=== PATIENT | female | born 1990 | race Two or more races ===

== ENCOUNTER 2024-01-31 23:25 | Inpatient (IN) | payer BC, SELFPAY ==
[2024-01-31 23:00] VITALS: BP 133/84; PULSE 66; O2SAT 94
[2024-01-31 23:01] VITALS: RESP 16; TEMP 36.7; O2SAT 98
[2024-01-31 23:06] VITALS: BMI 29.2
[2024-01-31 23:25] LABS: ROM Internal Control Test YES-OK TO RESULT pt. (Internal QC); ROM Patient Test POSITIVE (Negative); Record Kit Lot#, ROM+ K1866
[2024-01-31] MEDS: Lactated Ringers 1,000 ML 50 ML IV (23:45)
[2024-02-01] VITALS (82 sets, daily range): BP systolic 89–156; BP diastolic 50–96; PULSE 55–115; RESP 15–20; TEMP 36–37.8; O2SAT 91–100
[2024-02-01] LABS: Absolute Lymphocyte Count 2.24 X10^3/uL (0.83-4.51); Absolute Neutrophil Count 6.1 X10^3/uL (2.0-7.7); Basophil# 0.03 X10^3/uL; Basophil% 0.3 % (0-1); Eosinophil# 0.19 X10^3/uL; Hematocrit 37.4 % (37-47); Hemoglobin 12.6 g/dL (12.0-15.0); Lymphocyte # 2.24 X10^3/ul (0.83-4.51); Lymphocyte % 24.1 % (19-41); Mean Corp Hgb Conc 33.7 g/dL (32-36); Mean Corpuscular Hgb 30.9 pg (27.0-32.0); Mean Corpuscular Volume 91.7 fL (81-99); Mean Platelet Vol. 12.1 fl (6.2-12.0); Monocyte# 0.65 X10^3/uL; NRBC Flagged by Analyzer 0 % (0-5); Neutrophil # 6.14 X10^3/uL (2.7-7.7); Neutrophil % 66.1 % (47-70); Platelet Count 147 K/mm3 (150-450); RBC Distribution Width CV 13.1 % (11.6-14.6); RBC Distribution Width SD 43.7 fl (35.1-43.9); Red Blood Count 4.08 M/mm3 (4.2-5.4); White Blood Count 9.3 K/mm3 (4.4-11.0)
[2024-02-01 00:41] LABS: Bedside Glucose 93 mg/dL (74-106)
[2024-02-01 00:53] LABS: Syphilis Antibodies Non-reactive
[2024-02-01] MEDS: Lactated Ringers 1,000 ML 999 ML IV (00:55)
[2024-02-01] MEDS: fentaNYL-bupivacaine (epidural) 100 ML BAG EPIDURAL ×2 (01:42→05:44)
[2024-02-01] MEDS: 0.9% Saline Lock 10 ML Syringe IV ×2 (02:45→15:31)
[2024-02-01 02:46] LABS: Bedside Glucose 126 mg/dL (74-106)
[2024-02-01 02:46] LABS: Bedside Glucose 133 mg/dL (74-106)
[2024-02-01] MEDS: LACTATED RINGERS 500 ML 999 ML IV (03:35)
[2024-02-01 03:46] LABS: Bedside Glucose 121 mg/dL (74-106)
[2024-02-01 05:04] LABS: Bedside Glucose 103 mg/dL (74-106)
--- NOTE | 2024-02-01 05:32 | NURSING ---
intermittent straight cath during labor.
[2024-02-01 07:07] LABS: Bedside Glucose 93 mg/dL (74-106)
[2024-02-01] MEDS: Lactated Ringers 1,000 ML 200 ML IV ×2 (07:28→08:57)
[2024-02-01 08:37] LABS: Bedside Glucose 90 mg/dL (74-106)
[2024-02-01] MEDS: Ondansetron 4 MG/2 ML Vial IV (08:57)
[2024-02-01] MEDS: Oxytocin 15 Units/NS 250ml 15 UNITS/250 ML IV.SOLN 2 UNITS IV (09:19)
[2024-02-01 09:40] LABS: Bedside Glucose 89 mg/dL (74-106)
[2024-02-01 10:12] LABS: Bedside Glucose 82 mg/dL (74-106)
--- NOTE | 2024-02-01 10:53 | PCM.HP.OB ---
HPI - General General Date of Admission: 01/31/24 HPI Narrative SHERRY THOMPSON, is a 33 F who presents at 39 weeks with rupture of membranes and irregular contractions. Maternal Data Information KRISHNA Calculator Estimated Delivery Date Method Current WG Current Estimate 02/08/24 Manual 39w 0d [facility] Medical History (Updated 02/01/24 @ 10:57 by Bri Brady CNM) Gestational diabetes Home Medications ?Medication ?Instructions ?Recorded ?Last Taken ?Type vit no.95-ferrous 1 tab PO DAILY see provid 01/31/24 01/31/24 20:05 History fumarate 28 mg-folic acid 800 mcg tablet () Allergy/AdvReac Type Severity Reaction Status Date / Time No Known Allergies Allergy Verified 01/31/24 23:04 Social History Smoking Status: Never smoker History Elective abortions Hx Para 0 Spontaneous abortions Hx # Term Pregnancies Ectopic pregnancies Hx # Pregnancies Multiple births # of living children ROS Constitutional Constitutional: Reports systems reviewed and no addt'l complaints, except as documented; Denies headache(s) Eyes Eyes: Denies acute decrease in peripheral vision, blurry vision or change in vision ENT HEENT: Reports systems reviewed and no addt'l complaints, except as documented Cardiovascular Cardiovascular: Denies chest pain or dizziness Respiratory/Chest Respiratory/Chest: Denies cough, dyspnea, dyspnea on exertion, shortness of breath at rest or shortness of breath with exertion Gastrointestinal Gastrointestinal: Denies abdominal pain, diarrhea, nausea or vomiting Genitourinary Genitourinary: Reports movement Details: present; Denies abdominal discomfort Musculoskeletal Musculoskeletal: Denies limited range of motion Integumentary Integumentary: Reports systems reviewed and no addt'l complaints, except as documented Neurologic Neurologic: Reports systems reviewed and no addt'l complaints, except as documented Psychiatric Psychiatric: Reports systems reviewed and no addt'l complaints, except as documented Endocrine Endocrinology: Reports systems reviewed and no addt'l complaints, except as documented Hematologic/Lymphatic Hematologic/Lymphatic: Reports systems reviewed and no addt'l complaints, except as documented Allergic/Immunologic Allergic/Immunologic: Reports systems reviewed and no addt'l complaints, except as documented Vital Signs Vital Signs Vital Signs: 01/31/24 23:00 01/31/24 23:00 01/31/24 23:00 Temperature Temperature Source Pulse Rate 66 Respiratory Rate Blood Pressure 133/84 H BP Systolic 133 BP Diastolic 84 Pulse Ox 94 01/31/24 23:01 01/31/24 23:01 01/31/24 23:01 Temperature Temperature Source Temporal Pulse Rate Respiratory Rate 16 Blood Pressure BP Systolic BP Diastolic Pulse Ox 98 01/31/24 23:01 02/01/24 00:15 02/01/24 00:15 Temperature 98.0 F Temperature Source Temporal Pulse Rate Respiratory Rate Blood Pressure 105/71 BP Systolic 105 BP Diastolic 71 Pulse Ox 02/01/24 00:15 02/01/24 00:15 02/01/24 00:15 Temperature Temperature Source Pulse Rate 65 Respiratory Rate 16 Blood Pressure BP Systolic BP Diastolic Pulse Ox 99 02/01/24 00:15 02/01/24 01:17 02/01/24 01:17 Temperature 97.4 F L Temperature Source Temporal Pulse Rate 59 L Respiratory Rate Blood Pressure BP Systolic BP Diastolic Pulse Ox 02/01/24 01:17 02/01/24 01:17 02/01/24 01:17 Temperature 97.5 F L Temperature Source Pulse Rate Respiratory Rate 16 Blood Pressure BP Systolic BP Diastolic Pulse Ox 94 02/01/24 01:18 02/01/24 01:18 02/01/24 01:18 Temperature Temperature Source Pulse Rate 59 L Respiratory Rate Blood Pressure 156/96 H BP Systolic 156 BP Diastolic 96 Pulse Ox 93 02/01/24 01:18 02/01/24 01:18 02/01/24 01:22 Temperature Temperature Source Pulse Rate 57 L 73 Respiratory Rate Blood Pressure BP Systolic BP Diastolic Pulse Ox 99 02/01/24 01:22 02/01/24 01:27 02/01/24 01:27 Temperature Temperature Source Pulse Rate 70 Respiratory Rate Blood Pressure 134/78 H BP Systolic 134 BP Diastolic 78 Pulse Ox 98 02/01/24 01:27 02/01/24 01:27 02/01/24 01:32 Temperature Temperature Source Pulse Rate Respiratory Rate 18 Blood Pressure 132/80 H BP Systolic 132 BP Diastolic 80 Pulse Ox 98 02/01/24 01:32 02/01/24 01:32 02/01/24 01:32 Temperature Temperature Source Pulse Rate 75 69 Respiratory Rate Blood Pressure BP Systolic BP Diastolic Pulse Ox 98 02/01/24 01:32 02/01/24 01:37 02/01/24 01:37 Temperature Temperature Source Pulse Rate 67 Respiratory Rate 20 H Blood Pressure 138/93 H BP Systolic 138 BP Diastolic 93 Pulse Ox 02/01/24 01:37 02/01/24 01:37 02/01/24 01:42 Temperature Temperature Source Pulse Rate 63 Respiratory Rate 20 H Blood Pressure BP Systolic BP Diastolic Pulse Ox 98 02/01/24 01:42 02/01/24 01:43 02/01/24 01:47 Temperature Temperature Source Pulse Rate Respiratory Rate 20 H Blood Pressure 127/79 H BP Systolic 127 BP Diastolic 79 Pulse Ox 96 02/01/24 01:47 02/01/24 01:47 02/01/24 01:48 Temperature Temperature Source Pulse Rate 67 Respiratory Rate 20 H Blood Pressure BP Systolic BP Diastolic Pulse Ox 98 02/01/24 01:52 02/01/24 01:52 02/01/24 01:52 Temperature Temperature Source Pulse Rate 68 Respiratory Rate Blood Pressure 124/64 H BP Systolic 124 BP Diastolic 64 Pulse Ox 98 02/01/24 01:57 02/01/24 01:57 02/01/24 01:57 Temperature Temperature Source Pulse Rate 69 72 Respiratory Rate Blood Pressure 122/74 H BP Systolic 122 BP Diastolic 74 Pulse Ox 02/01/24 01:57 02/01/24 01:57 02/01/24 02:02 Temperature Temperature Source Pulse Rate Respiratory Rate 20 H Blood Pressure 135/77 H BP Systolic 135 BP Diastolic 77 Pulse Ox 99 02/01/24 02:02 02/01/24 02:02 02/01/24 02:02 Temperature Temperature Source Pulse Rate 75 62 Respiratory Rate Blood Pressure BP Systolic BP Diastolic Pulse Ox 99 02/01/24 02:02 02/01/24 02:07 02/01/24 02:07 Temperature Temperature Source Pulse Rate 66 Respiratory Rate 20 H Blood Pressure 126/61 H BP Systolic 126 BP Diastolic 61 Pulse Ox 02/01/24 02:07 02/01/24 02:07 02/01/24 02:12 Temperature Temperature Source Pulse Rate 58 L Respiratory Rate 20 H Blood Pressure BP Systolic BP Diastolic Pulse Ox 98 02/01/24 02:12 02/01/24 02:12 02/01/24 02:13 Temperature Temperature Source Pulse Rate Respiratory Rate 20 H Blood Pressure 121/60 H BP Systolic 121 BP Diastolic 60 Pulse Ox 98 02/01/24 02:13 02/01/24 02:16 02/01/24 02:16 Temperature Temperature Source Pulse Rate 55 L 71 Respiratory Rate Blood Pressure BP Systolic BP Diastolic Pulse Ox 92 02/01/24 02:17 02/01/24 02:17 02/01/24 02:18 Temperature Temperature Source Pulse Rate 59 L Respiratory Rate 20 H Blood Pressure BP Systolic BP Diastolic Pulse Ox 99 02/01/24 02:47 02/01/24 02:47 02/01/24 02:47 Temperature Temperature Source Pulse Rate 65 Respiratory Rate 20 H Blood Pressure 134/81 H BP Systolic 134 BP Diastolic 81 Pulse Ox 02/01/24 03:00 02/01/24 03:00 02/01/24 03:00 Temperature 97.5 F L Temperature Source Temporal Pulse Rate Respiratory Rate 20 H Blood Pressure BP Systolic BP Diastolic Pulse Ox 02/01/24 03:00 02/01/24 03:00 02/01/24 03:00 Temperature Temperature Source Pulse Rate 72 Respiratory Rate 20 H Blood Pressure 119/71 BP Systolic 119 BP Diastolic 71 Pulse Ox 02/01/24 03:01 02/01/24 03:01 02/01/24 03:04 Temperature Temperature Source Pulse Rate 74 Respiratory Rate Blood Pressure 115/74 BP Systolic 115 BP Diastolic 74 Pulse Ox 96 02/01/24 03:04 02/01/24 03:04 02/01/24 03:04 Temperature Temperature Source Pulse Rate 78 Respiratory Rate 20 H Blood Pressure BP Systolic BP Diastolic Pulse Ox 91 02/01/24 03:05 02/01/24 03:06 02/01/24 03:06 Temperature Temperature Source Pulse Rate 72 Respiratory Rate Blood Pressure BP Systolic BP Diastolic Pulse Ox 96 96 02/01/24 03:09 02/01/24 03:09 02/01/24 03:09 Temperature Temperature Source Pulse Rate 68 Respiratory Rate 20 H Blood Pressure BP Systolic 121 BP Diastolic Pulse Ox 02/01/24 03:09 02/01/24 03:10 02/01/24 03:10 Temperature Temperature Source Pulse Rate 73 Respiratory Rate Blood Pressure BP Systolic BP Diastolic 77 Pulse Ox 94 02/01/24 03:11 02/01/24 03:11 02/01/24 03:14 Temperature Temperature Source Pulse Rate 73 Respiratory Rate Blood Pressure 124/78 H BP Systolic 124 BP Diastolic 78 Pulse Ox 94 02/01/24 03:14 02/01/24 03:15 02/01/24 03:16 Temperature Temperature Source Pulse Rate 62 73 Respiratory Rate 20 H Blood Pressure BP Systolic BP Diastolic Pulse Ox 02/01/24 03:16 02/01/24 03:21 02/01/24 03:21 Temperature Temperature Source Pulse Rate 76 Respiratory Rate Blood Pressure 107/55 L BP Systolic 107 BP Diastolic 55 Pulse Ox 95 02/01/24 03:21 02/01/24 03:21 02/01/24 03:24 Temperature Temperature Source Pulse Rate Respiratory Rate 20 H Blood Pressure 107/59 L BP Systolic 107 BP Diastolic 59 Pulse Ox 97 02/01/24 03:24 02/01/24 03:24 02/01/24 03:26 Temperature Temperature Source Pulse Rate 86 99 Respiratory Rate 18 Blood Pressure BP Systolic BP Diastolic Pulse Ox 02/01/24 03:26 02/01/24 03:29 02/01/24 03:29 Temperature Temperature Source Pulse Rate Respiratory Rate 18 Blood Pressure BP Systolic BP Diastolic Pulse Ox 97 97 02/01/24 03:30 02/01/24 03:30 02/01/24 03:31 Temperature Temperature Source Pulse Rate 86 85 Respiratory Rate Blood Pressure 94/50 L BP Systolic 94 BP Diastolic 50 Pulse Ox 02/01/24 03:31 02/01/24 03:34 02/01/24 03:34 Temperature Temperature Source Pulse Rate 81 Respiratory Rate Blood Pressure 93/51 L BP Systolic 93 BP Diastolic 51 Pulse Ox 96 02/01/24 03:34 02/01/24 03:36 02/01/24 03:36 Temperature Temperature Source Pulse Rate 79 Respiratory Rate 18 Blood Pressure BP Systolic BP Diastolic Pulse Ox 97 02/01/24 03:39 02/01/24 03:39 02/01/24 03:39 Temperature Temperature Source Pulse Rate 82 Respiratory Rate 18 Blood Pressure 92/55 L BP Systolic 92 BP Diastolic 55 Pulse Ox 02/01/24 03:39 02/01/24 03:41 02/01/24 03:41 Temperature Temperature Source Pulse Rate 80 Respiratory Rate Blood Pressure BP Systolic BP Diastolic Pulse Ox 98 97 02/01/24 03:45 02/01/24 03:45 02/01/24 03:45 Temperature Temperature Source Pulse Rate 68 Respiratory Rate 18 Blood Pressure 90/55 L BP Systolic 90 BP Diastolic 55 Pulse Ox 02/01/24 03:46 02/01/24 03:46 02/01/24 03:51 Temperature Temperature Source Pulse Rate 70 82 Respiratory Rate Blood Pressure BP Systolic BP Diastolic Pulse Ox 97 02/01/24 03:51 02/01/24 03:56 02/01/24 03:56 Temperature Temperature Source Pulse Rate 89 Respiratory Rate Blood Pressure BP Systolic BP Diastolic Pulse Ox 98 100 02/01/24 04:01 02/01/24 04:01 02/01/24 04:06 Temperature Temperature Source Pulse Rate 83 73 Respiratory Rate Blood Pressure BP Systolic BP Diastolic Pulse Ox 100 02/01/24 04:06 02/01/24 04:11 02/01/24 04:11 Temperature Temperature Source Pulse Rate 68 Respiratory Rate Blood Pressure BP Systolic BP Diastolic Pulse Ox 99 97 02/01/24 04:16 02/01/24 04:16 02/01/24 04:16 Temperature Temperature Source Pulse Rate 70 Respiratory Rate Blood Pressure 89/53 L BP Systolic 89 BP Diastolic 53 Pulse Ox 97 02/01/24 04:21 02/01/24 04:21 02/01/24 04:26 Temperature Temperature Source Pulse Rate 67 64 Respiratory Rate Blood Pressure BP Systolic BP Diastolic Pulse Ox 97 02/01/24 04:26 02/01/24 04:31 02/01/24 04:31 Temperature Temperature Source Pulse Rate 69 Respiratory Rate Blood Pressure BP Systolic BP Diastolic Pulse Ox 97 97 02/01/24 04:36 02/01/24 04:36 02/01/24 04:38 Temperature Temperature Source Pulse Rate 86 Respiratory Rate Blood Pressure 123/68 H BP Systolic 123 BP Diastolic 68 Pulse Ox 98 02/01/24 04:38 02/01/24 04:39 02/01/24 04:39 Temperature Temperature Source Temporal Pulse Rate 77 Respiratory Rate Blood Pressure 108/60 BP Systolic 108 BP Diastolic 60 Pulse Ox 02/01/24 04:39 02/01/24 04:39 02/01/24 04:39 Temperature 97.4 F L Temperature Source Pulse Rate 95 Respiratory Rate 16 Blood Pressure BP Systolic BP Diastolic Pulse Ox 02/01/24 04:40 02/01/24 04:40 02/01/24 05:29 Temperature Temperature Source Temporal Pulse Rate 88 Respiratory Rate Blood Pressure BP Systolic BP Diastolic Pulse Ox 93 02/01/24 05:29 02/01/24 05:29 02/01/24 05:30 Temperature 97.2 F L Temperature Source Pulse Rate Respiratory Rate 16 Blood Pressure 112/59 L BP Systolic 112 BP Diastolic 59 Pulse Ox 02/01/24 05:30 02/01/24 05:31 02/01/24 05:31 Temperature Temperature Source Pulse Rate 73 72 Respiratory Rate Blood Pressure BP Systolic BP Diastolic Pulse Ox 100 02/01/24 06:41 02/01/24 06:41 02/01/24 06:41 Temperature Temperature Source Temporal Pulse Rate 69 Respiratory Rate Blood Pressure 113/62 BP Systolic 113 BP Diastolic 62 Pulse Ox 02/01/24 06:41 02/01/24 06:41 02/01/24 06:41 Temperature 96.8 F L Temperature Source Pulse Rate Respiratory Rate 16 Blood Pressure BP Systolic BP Diastolic Pulse Ox 100 02/01/24 07:45 02/01/24 07:45 02/01/24 07:45 Temperature Temperature Source Pulse Rate 67 Respiratory Rate 15 Blood Pressure 105/62 BP Systolic 105 BP Diastolic 62 Pulse Ox 02/01/24 07:45 02/01/24 08:54 02/01/24 08:54 Temperature Temperature Source Pulse Rate 115 H Respiratory Rate Blood Pressure 136/80 H BP Systolic 136 BP Diastolic 80 Pulse Ox 100 02/01/24 08:56 02/01/24 08:56 02/01/24 09:53 Temperature Temperature Source Pulse Rate Respiratory Rate 17 Blood Pressure 113/68 BP Systolic 113 BP Diastolic 68 Pulse Ox 100 02/01/24 09:53 Temperature Temperature Source Pulse Rate 91 Respiratory Rate Blood Pressure BP Systolic BP Diastolic Pulse Ox Weight Weight: 186 lb 8.177 oz Body Mass Index (BMI) 29.2 Physical Exam Const alert and oriented x3 General Appearance: cooperative Orientation / Consciousness: awake, oriented to person, oriented to place and oriented to time Exam Limitations: no limitations HEENT normocephalic Head and Scalp: normal to inspection, normocephalic and atraumatic Face and Sinus: normal facial exam Eyes General Eye: normal appearance of both eyes Neck full ROM Chest Chest: symmetrical chest wall rise Resp normal respiratory effort and normal air movement Auscultation: clear to auscultation bilaterally Cardio regular rate, regular rhythm, S1 normal heart sound, S2 normal heart sound, no murmurs, no rub, no gallops and no clicks GI normal to inspection, nondistended, normoactive bowel sounds and non-tender appearance of the vagina normal Bladder / Kidney Exam: no CVA tenderness Back/Spine normal ROM Extremity normal to inspection and full ROM Skin no rashes or lesions noted Neuro oriented x3, CN's II-XII intact bilaterally and moves all extremities Sensorium / Orientation: awake, alert and oriented to person Motor Exam: clonus absent Deep Tendon Reflexes: Rt Patellar (L4): 2+ and Lt Patellar (L4): 2+ Labs Labs Labs: Blood Type B POSITIVE Antibody Screen NEGATIVE Hct 37.4 % (37-47) Hgb 12.6 g/dL (12.0-15.0) Syphilis Total Ab Non-reactive HIV negative B Positive HepC negative RPR negative HBsAG negative Rubella Immune GBS negative Assessment & Plan (1) Full-term PROM with onset of labor within 24 hours of rupture: (2) GDM (gestational diabetes mellitus), class A1: (3) 39 weeks gestation of : (4) Gestational thrombocytopenia: PLAN: Plan 1) Admit to labor and delivery 2) Routine labs 3) GDM protocol 4) Epidural for pain management 5) Pitocin if contractions spacing out and augmentation needed 6) Continuous EFM 7) collaborative physician and notified of patient above assessment, plan and status.
--- NOTE | 2024-02-01 11:55 | EX.PCM.OBRPT ---
Assessment & Plan (1) Vaginal delivery: (2) Second degree perineal laceration: (3) Lactating mother: Maternal Data Information KRISHNA Calculator Estimated Delivery Date Method Current WG Current Estimate 02/08/24 Manual 39w 0d Vaginal Delivery Maternal Presentation Maternal Presentation: Active Labor and Spontaneous Rupture of Membranes Operative Information Date of Procedure: 02/01/24 Pre-Operative Diagnosis: Active Post-Operative Diagnosis: , 2nd degree Surgery / Procedure Performed: Spontaneous Vaginal Delivery Type of Anesthesia: Epidural Estimated Blood Loss: 400ml Time of Delivery: 11:15 Findings Description of Procedure: Progressed to complete with urge to push. Epidural for pain management. of viable male infant over 2nd degree perineal laceration. APGARS 4,7,8 respectively. head delivered with body immediately forthcoming. Placed on maternal abdomen, no cry. Mouth and nares suctioned for secretions. Cord clamped and cut and passed to awaiting nursing staff due to poor breathing efforts and color. Good tone. Pitocin started for active 3rd stage management. Contract Negotiation Manager called to room. Cord gases obtained. Placenta delivered intact via fisher, 3 vessel cord intact. Perineum inspected and revealed 2nd degree perineal laceration. Repaired with 3.0 vicryl rapide x2 and epidural Fundus firm and hemostasis achieved. EBL 400ml. Mom and baby stable, planning to breastfeed. Family bonding well. notified of delivery. Presentation: Vertex and SO Amniotic Membrane Rupture Type: Spontaneous Amniotic Fluid Description: Clear Placental Delivery Description: Spontaneous Placenta Disposition: [facility] Cord Vessel Description: 3 Vessels Cord Entanglement: None Cord Gases: ABG and VBG Infant A Gender: Male (1 minute): 4 (5 minute): 7 Delayed Cord Clamping: No Post Vaginal Delivery Medications Given After Delivery: IV Pitocin Episiotomy Description: None Laceration: Perineal Extension/lac and 2nd degree Complication Complications: None
[2024-02-01] MEDS: Oxytocin 15 Units/NS 250ml 15 UNITS/250 ML IV.SOLN 83 UNITS IV (12:38)
[2024-02-01 13:09] LABS: Bedside Glucose 93 mg/dL (74-106)
--- NOTE | 2024-02-01 18:06 | NURSING ---
patient unable to void per policy. bladder scanned for 1076ml at 1745. patient will be straight cathed
[2024-02-02] VITALS: BP 126/79; PULSE 84; RESP 16; TEMP 36.1; O2SAT 98
[2024-02-02 04:00] VITALS: BP 118/80; PULSE 85; RESP 16; TEMP 36.2; O2SAT 98
[2024-02-02 06:00] VITALS: BP 113/69; PULSE 72; RESP 16; TEMP 36.7; O2SAT 100
[2024-02-02 06:09] LABS: Absolute Lymphocyte Count 2.07 X10^3/uL (0.83-4.51); Absolute Neutrophil Count 8.4 X10^3/uL (2.0-7.7); Basophil# 0.03 X10^3/uL; Basophil% 0.3 % (0-1); Eosinophil# 0.18 X10^3/uL; Eosinophils% 1.6 % (0-5); Hemoglobin 10.1 g/dL (12.0-15.0); Lymphocyte # 2.07 X10^3/ul (0.83-4.51); Lymphocyte % 18.2 % (19-41); Mean Corp Hgb Conc 33.7 g/dL (32-36); Mean Corpuscular Hgb 31.8 pg (27.0-32.0); Mean Corpuscular Volume 94.3 fL (81-99); Mean Platelet Vol. 11.7 fl (6.2-12.0); Monocyte# 0.65 X10^3/uL; Monocyte% 5.7 % (0-10); NRBC Flagged by Analyzer 0 % (0-5); Neutrophil # 8.39 X10^3/uL (2.7-7.7); Neutrophil % 73.8 % (47-70); Platelet Count 117 K/mm3 (150-450); RBC Distribution Width CV 13.3 % (11.6-14.6); RBC Distribution Width SD 45.9 fl (35.1-43.9); Red Blood Count 3.18 M/mm3 (4.2-5.4); White Blood Count 11.4 K/mm3 (4.4-11.0)
[2024-02-02 06:11] LABS: Bedside Glucose 83 mg/dL (74-106)
--- NOTE | 2024-02-02 09:25 | PN.OBGYN_ITS ---
Subjective Subjective Doing well per patient and nursing staff. Ambulating and taking PO without difficulty. Voiding and passing flatus. Pain controlled. , services for assistance. Denies headache, visual changes, chest pain, shortness of breath, leg pain or increased bleeding. Lochia normal. in SCN for oxygen. Objective Data Objective Data Vital Signs: Vital Signs Temp Pulse Resp BP Pulse Ox O2 Del Method 98.1 F 72 16 113/69 100 Room Air 02/02/24 06:00 02/02/24 06:00 02/02/24 06:00 02/02/24 06:00 02/02/24 06:00 02/02/24 06:00 Oxygen Delivery Method Room Air Weight: 186 lb 8.177 oz Body Mass Index (BMI) 29.2 Intake & Output: Intake and Output for Last 24 Hours 01/31/24 02/01/24 02/02/24 23:59 23:59 23:59 Intake Total 4460.00 / 4460.00 Output Total 2952 / 2952 500 / 500 Balance 1508.00 / 1508.00 -500 / -500 Lab / Micro Data 02/02/24 05:50 Labs: Laboratory Results - last 24 hr 02/01/24 08:49: POC Glucose 89 02/01/24 09:52: POC Glucose 82 02/01/24 12:47: POC Glucose 93 02/02/24 05:48: POC Glucose 83 02/02/24 05:50: WBC 11.4 H, RBC 3.18 L, Hgb 10.1 L, Hct 30.0 L, MCV 94.3, MCH 31.8, MCHC 33.7, RDW Std Deviation 45.9 H, RDW Coeff of Guido 13.3, Plt Count 117 L, MPV 11.7, Immature Gran % (Auto) 0.400, Neut % (Auto) 73.8 H, Lymph % (Auto) 18.2 L, [place] % (Auto) 5.7, Eos % (Auto) 1.6, Baso % (Auto) 0.3, Absolute Neuts (auto) 8.4 H, Absolute Lymphs (auto) 2.07, Nucleated RBC % 0 ROS Constitutional Constitutional: Reports systems reviewed and no addt'l complaints, except as documented; Denies headache(s) Eyes Eyes: Denies acute decrease in peripheral vision, blurry vision or change in vision ENT HEENT: Reports systems reviewed and no addt'l complaints, except as documented Cardiovascular Cardiovascular: Denies chest pain or dizziness Respiratory/Chest Respiratory/Chest: Denies cough, dyspnea, dyspnea on exertion, shortness of breath at rest or shortness of breath with exertion Gastrointestinal Gastrointestinal: Denies abdominal pain, diarrhea, nausea or vomiting Genitourinary Genitourinary: Denies abdominal discomfort Musculoskeletal Musculoskeletal: Denies limited range of motion Integumentary Integumentary: Reports systems reviewed and no addt'l complaints, except as documented Neurologic Neurologic: Reports systems reviewed and no addt'l complaints, except as documented Psychiatric Psychiatric: Reports systems reviewed and no addt'l complaints, except as documented Endocrine Endocrinology: Reports systems reviewed and no addt'l complaints, except as documented Hematologic/Lymphatic Hematologic/Lymphatic: Reports systems reviewed and no addt'l complaints, except as documented Allergic/Immunologic Allergic/Immunologic: Reports systems reviewed and no addt'l complaints, except as documented Physical Exam Const alert and oriented x3 General Appearance: cooperative Orientation / Consciousness: awake, oriented to person, oriented to place and oriented to time Exam Limitations: no limitations HEENT normocephalic Head and Scalp: normal to inspection, normocephalic and atraumatic Face and Sinus: normal facial exam Eyes General Eye: normal appearance of both eyes Neck full ROM Chest Chest: symmetrical chest wall rise Resp normal respiratory effort and normal air movement Auscultation: clear to auscultation bilaterally Cardio regular rate, regular rhythm, S1 normal heart sound, S2 normal heart sound, no murmurs, no rub, no gallops and no clicks GI normal to inspection, nondistended, normoactive bowel sounds and non-tender appearance of the vagina normal Bladder / Kidney Exam: no CVA tenderness Back/Spine normal ROM Extremity normal to inspection and full ROM Skin no rashes or lesions noted Neuro oriented x3, CN's II-XII intact bilaterally and moves all extremities Sensorium / Orientation: awake, alert and oriented to person Motor Exam: clonus absent Deep Tendon Reflexes: Rt Patellar (L4): 2+ and Lt Patellar (L4): 2+ Assessment & Plan (1) Lactating mother: (2) Second degree perineal laceration: (3) Vaginal delivery: PLAN: Plan 1) Routine PP Care 2) Glucose 86, no further testing needed, will get testing after 6wk 3) Vitals stable 4) Hgb 10, down from 12.6, will start PO iron supplement 5) Lactating, assistance from staff and if needed 6) Pain management 7) in SCN, may need to go to hotel status tomorrow or Saturday
[2024-02-02 12:30] VITALS: BP 116/86; PULSE 63; RESP 16; TEMP 36.7; O2SAT 98
--- NOTE | 2024-02-02 14:36 | EX.CON.LACT ---
Assessment & Plan Assessment/Plan (1) Care and examination of lactating mother: PLAN: Plan as listed below. HPI Consult Data Date of Consult: 02/02/24 HPI Narrative HPI Narrative: SHERRY THOMPSON, is a 33 F who presents for pumping assessment, pain with pumping. History provided by the patient. [facility] Medical History (Updated 02/02/24 @ 14:42 by Nathalie Mccann PROPERTY MAINTENANCE TECHNICIAN, PROPERTY MAINTENANCE TECHNICIAN-C) Care and examination of lactating mother Gestational diabetes Home Medications ?Medication ?Instructions ?Recorded ?Last Taken ?Type vit no.95-ferrous 1 tab PO DAILY see provid 01/31/24 01/31/24 20:05 History fumarate 28 mg-folic acid 800 mcg tablet () Allergy/AdvReac Type Severity Reaction Status Date / Time No Known Allergies Allergy Verified 01/31/24 23:04 Social History Smoking Status: Never smoker ROS Constitutional Constitutional: Denies lethargy Gastrointestinal Gastrointestinal: Reports other Details: baby in [facility], started pumping yesterday afternoon, was having discomfort with pumping and not getting much volume, concerned, denies any history of thyroid disorders or PCOS, states that had minimal breast changes with Exam General alert and no apparent distress Respiratory Respiratory: normal respiratory effort Skin normal color Feeding Assessment Feeding Assessment Feed Type: Other ([facility] ) [place] Feeding Aids Currently Using: Pumping and Mother hand expression Latch Score Observation Feeding Observed:: No IBCLC Feeding Assessment Feeding Plan Feeding Plan: Baby in SCN. Plan to attempt to latch and pump q 3 hours. Educated on hand expressing after pumping. Pump settings written out for patient. Fitted for correct flange size, minimal pain with pumping today with IBCLC. Patient pumped for 15 minutes and then hand expressed. Unable to get any colostrum out at this time. Will continue plan and monitor closely. Interventions IBCLC/CLC Interventions: Pumping, Hand expression, Warm compresses, Schedule outpatient consult and Breast Massage Education IBCLC/CLC Education: How to perform hand expression and Use of breast pump Charges/Coding Visit Charges Inpatient E&M: 69451 Init Hosp L1
[2024-02-02 16:52] VITALS: BP 120/70; PULSE 83; RESP 18; TEMP 36.8; O2SAT 98
[2024-02-02 20:26] VITALS: BP 132/96; PULSE 94; RESP 16; TEMP 36.6; O2SAT 99
[2024-02-02] MEDS: Senna/Docusate Sodium 1 Tablet PO (20:37)
[2024-02-03 03:00] VITALS: BP 128/77; PULSE 85; RESP 16; TEMP 36.7; O2SAT 100
[2024-02-03 07:53] VITALS: BP 118/80; PULSE 72; RESP 16; TEMP 36.4; O2SAT 100
--- NOTE | 2024-02-03 08:31 | PCM.PN.OB ---
Subjective Subjective pt doing well and offers no complaints. denies BLACKWELL, CP, SOB, leg pain. Ambulating and voiding without difficulty. Lochia normal. Pumping. Baby in SCN. Objective Data Objective Data Vital Signs: Vital Signs Temp Pulse Resp BP Pulse Ox O2 Del Method 97.5 F L 72 16 118/80 100 Room Air 02/03/24 07:53 02/03/24 07:53 02/03/24 07:53 02/03/24 07:53 02/03/24 07:53 02/03/24 07:53 Oxygen Delivery Method Room Air Weight: 186 lb 8.177 oz Body Mass Index (BMI) 29.2 Intake & Output: Intake and Output for Last 24 Hours 02/01/24 02/02/24 02/03/24 23:59 23:59 23:59 Intake Total 4460.00 / 4460.00 Output Total 2952 / 2952 500 / 500 Balance 1508.00 / 1508.00 -500 / -500 Lab / Micro Data 02/02/24 05:50 Physical Exam Const alert and no apparent distress General Appearance: comfortable HEENT normocephalic Resp normal respiratory effort GI soft to palpation, non-tender and non-distended GI Narrative: FF@U-1 Extremity no calf tenderness Assessment & Plan (1) Second degree perineal laceration: (2) Vaginal delivery: PLAN: PPD#2 s/p . Pt doing well. Baby in SCN. Reviewed discharge instructions today.
--- NOTE | 2024-02-03 08:34 | DCINST_ITS ---
Discharge Instructions Diet Discharge Diet: No restrictions Activity Discharge Activity: May Drive and May Shower May resume sexual activity in: 6 weeks Ice area for (Minutes): 15 Weight Bearing Status: Weight bearing as tolerated Lifting Restrictions: nothing heavier than baby Dressing / Incision Call your doctor if your incision/area has: Continuous Slow Oozing, Sudden Increased Bleeding, Increased Pain/ Swelling, Increased Redness, Foul Smelling Discharge and Swelling at the incision site Call your doctor if you observe: Fever of 101 or Higher, Coldness, Increased Pain, Numbness or Tingling, Change in Color, Inability to urinate, Inability to have a bowel movement, Using more than 1 pad per hour, Shortness of breath, Dizziness, Fainting spells, Swelling in the ankles, Chest pain, Prolonged hiccupping, Increased palpitations (irregular heartbeat), Calf discomfort and Uncontrolled pain Cleanse incision/area with: Soap & Water Follow Up Care Please Follow Up With: Bri Brady CNM When: 1-2 weeks early 6 weeks exam Test Results: Test results from this visit will be discussed in further detail at your follow- up appointment, if applicable. Discharge Plan Admission Admit Date/Time: 01/31/24 23:25 Primary Reason for Your Visit: Delivery Attending Provider: Bri Brady Primary Care Provider: Care Physician,Michelle Primary Consulting Providers: Nathalie Mccann NP Instructions Patient Instructions: After a Vaginal Discharge Orders/Prescriptions Prescriptions: New ibuprofen 600 mg tablet 600 mg PO Q6H PRN (Reason: pain) Qty: 20 0RF Continued PNV cmb#95-ferrous fumarate-FA [] 28 mg iron- 800 mcg tablet 1 tab PO DAILY Referrals / Follow Up: Care Physician,No Primary [Primary Care Provider] - Disposition Disposition (needs filled in before D/C Order can be placed): Home, Self Care
[2024-02-03] MEDS: SimETHICONE 80 MG Chewable Tablet PO (15:06)
[2024-02-03] MEDS: Senna/Docusate Sodium 1 Tablet PO (15:06)
[2024-02-03 15:07] VITALS: BP 116/83; PULSE 92; RESP 16; TEMP 36.2; O2SAT 99
--- NOTE | 2024-02-04 15:09 | CASEMGMT ---
Social Work Assessment Labor and Delivery Unit Patient Address[facility] [place] [address] Phone number: [phone] Date of Referral: 02/03/24 Time of Referral:? 1609 Referred By: Bri Brady Date of Intervention: ??02/04/24 Time of Intervention:? 1200 Reason for Referral:? in special care nursery Sw completed chart review and acknowledges social work consult due to baby requiring admission to Special Care Nursery. Sw presented to bedside and introduced self to mother of baby (LARA- Amanda). Sw explained sw role and completed psychosocial assessment. History obtained from: medical records, MOB Household composition: Currently residing in the family home is MOB, FOB, maternal grandma and baby when ready for discharge. MOB states that housing is safe and secure. Patient's parent/guardian status:? 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 They have been together for 2 years. LARA denies domestic violence or intimate partner violence. Medical History: ?LARA is 33 year old who is 1, para 0- now 1 following labor and delivery of . LARA received routine care during with [facility]. LARA presented to hospital in labor and delivered baby at 39 weeks gestation on 02/01/24 via vaginal delivery.. Baby boy, named Lina, was born weighing 6lb 1oz with apgars of 4, 7 and 8 at one, five and ten minutes of life, respectfully. Baby required admission to special care nursery due to respiratory distress requiring CPAP. Educational Status:? Both parents obtained their Master's degrees. No problems with reading, learning or comprehension. Financial Status: Both parents are gainfully employed outside of the home. 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 Supplies:?? Parents have obtained all necessary baby supplies, including: car seat, safe sleep space, clothes, diapers and wipes. Childcare/Caregiver(s):? When both parents are working maternal grandma will provide childcare. Transportation:?? Both parents have their drivers license and reliable means of transportation. No barriers Programs/Agencies Involved: ??Parents are not connected to any community agencies that provide financial assistance. MOB denies linkage to any community mental health services [place]. ? Children Services/Legal Issues:???NO history of children services involvement. No issues or concerns warranting children services referral. Behavioral Health Issues: ??Mental Health History:??MOB denies any mental health history or diagnoses for herself and FOB. ? Substance Use History:?MOB denies substance use prior to and during . ? Family History:??MOB denies family history of substance use or significant mental health diagnoses. ??? Drug Screens: ??No drug screens observed in chart review. Family/Social Stressors:? MOB denies any issues, concerns or stressors. Support provided due to baby requiring admission to special care unit. Support Systems: MOB states that her mom and FOB are her biggest supports. Depression/Shaken Baby/Safe Sleeping:? Sw educated MOB on signs and symptoms of baby blues and mood and anxiety disorders to be on the lookout for. MOB expressed understanding. MOB stated that if she were to struggle during this time that FOB would be able to recognize that and would know how to help and support her. Sw educated MOB on shaken baby prevention and ABCs of safe sleep. MOB expressed understanding. ASSESSMENT:? MOB at bedside and observed to be holding in special care unit. MOB talkative and receptive to sw involvement and support. MOB does not appear to be in any distress or discomfort following labor and delivery. MOB expressed understanding of baby need to be in special care unit. Sw provided ongoing support and education. MOB has obtained all necessary baby supplies and has natural supports in place. PLAN:? MOB and baby to be discharged when medically ready. Sw provided literature for parents to review regarding: shaken baby prevention, ABCs of safe sleep, Help Me Grow, list of [facility] resources that are accessible to family in time of need, and signs and symptoms of baby blues and mood and anxiety disorders to be on the lookout for. ?No other services requested or indicated. Leonid Damon, CERTIFIED ENERGY MANAGER, SOUND TESTER
== END 2024-02-03 16:00 | disposition home or self-care (01) | DRG 806 ==
LOC: WPOUT 02-01 12:04 → WP 02-01 12:05
PROVIDERS: Obstetrics & Gynecology; Admitting Provider Advanced Practice Midwife; Referring Provider Advanced Practice Midwife; Visit Provider Advanced Practice Midwife
DX: O42.02 Full-term premature rupture of membranes, onset of labor within 24 hours of rupture (principal); Z37.0 Single live birth; O99.12 Other diseases of the blood and blood-forming organs and certain disorders involving the immune mechanism complicating childbirth; D69.6 Thrombocytopenia, unspecified; O24.429 Gestational diabetes mellitus in childbirth, unspecified control; O70.1 Second degree perineal laceration during delivery; Z3A.39 39 weeks gestation of pregnancy
CPT/HCPCS: 59025; 59050; 82962; 84112; 85025; 86780; 86850; 86900; 86901; 99221; J7120; A4216; G0378; J2405